=== PATIENT | female | born 1975 | race Caucasian/White ===

== ENCOUNTER 2018-11-07 07:45 | Inpatient (IN) | payer MEDICAID ==
[~2018-11-07] VITALS: Ht 152.4 cm; Wt 65.0 kg
[~2018-11-07 07:45] MED LIST: BUPR150T6 PO; NICO-687 TD; PHEN-786 PO; PSEU120T55 PO; ZOF4T PO
[2018-11-07] MEDS ORDERED: normal saline 1000ml 1,000 ML IVB ONE ×2 (08:15→08:25)
[2018-11-07] MEDS ORDERED: morphine 4 MG/ML inj SYRINge IV ONE ×2 (08:15→10:05)
[2018-11-07] MEDS ORDERED: ondansetron/PF 4mg/2ml inj IV ONE (08:15)
[2018-11-07 08:17] LABS: BASOPHILS % (AUTO) 0.2 % (0-1); EOSINOPHILS % (AUTO) 0.1 % (0-6); HEMATOCRIT 54.2 % (35.0-45.0); LYMPHOCYTES # (AUTO) 1.7 X10'3 (1.1-4.8); MEAN CORPUSCULAR HEMOGLOBIN 34.2 PG (27.0-31.0); MEAN CORPUSCULAR VOLUME 100.7 FL (78-98); MEAN PLATELET VOLUME 9.5 FL (7.4-10.4); MONOCYTES # (AUTO) 0.6 X10'3 (0-0.9); MONOCYTES % (AUTO) 5.1 % (2-12); NEUTROPHILS # (AUTO) 9.7 X10'3 (1.8-7.7); NEUTROPHILS % (AUTO) 80.6 % (42-75); PLATELET COUNT 220 X10'3 (140-440); RED BLOOD COUNT 5.39 X10'6 (4.20-5.60); RED CELL DISTRIBUTION WIDTH 14.1 % (11.5-14.5)
[2018-11-07 08:21] LABS: HEMOGLOBIN 18.4 g/dl (12.0-16.0)
--- NOTE | 2018-11-07 08:23 | NUR ---
received a call from the lab,critical hgb 18.4 hct 54.2-Dr. Varghese aware,no new order at this time.
[2018-11-07 08:25] LABS: INR 1.1 INR
[2018-11-07 08:30] LABS: ALANINE AMINOTRANSFERASE 42 U/L (12-78); ALBUMIN 3.5 G/DL (3.4-5.0); ALBUMIN/GLOBULIN RATIO 1.1 (1.1-1.5); ALKALINE PHOSPHATASE 79 IU/L (46-116); ANION GAP 16 (8-16); ASPARTATE AMINO TRANSFERASE 120 U/L (10-37); BILIRUBIN,TOTAL 1.1 MG/DL (0.1-1.0); BLOOD UREA NITROGEN 12 MG/DL (7-18); BUN/CREATININE RATIO 9.6 (6.6-38.0); CALCIUM 7.1 MG/DL (8.5-10.1); CHLORIDE 100 MMOL/L (99-107); CREATININE 1.25 MG/DL (0.40-0.90); GLUCOSE 150 MG/DL (70-104); POTASSIUM 3.7 MMOL/L (3.5-5.1); SODIUM 135 MMOL/L (135-145); TOTAL CARBON DIOXIDE 18.9 MMOL/L (24-32); TOTAL PROTEIN 6.8 G/DL (6.4-8.2); eGFR 47 ML/MIN
[2018-11-07 08:43] LABS: LIPASE 3771 U/L (73-393)
[2018-11-07 09:23] LABS: URINE HCG NEGATIVE (NEG)
[2018-11-07 09:24] LABS: CLARITY,URINE CLEAR (Clear); COLOR,URINE YELLOW (Yellow); GLUCOSE, URINE NEGATIVE (Neg); KETONES,URINE TRACE mg/dl (Neg); LEUKOCYTE ESTERASE ,URINE NEGATIVE (Neg); NITRITES, URINE NEGATIVE (Neg); OCCULT BLOOD,URINE NEGATIVE (Neg); PROTEIN,URINE 100 mg/dl (Neg)
[2018-11-07 09:33] LABS: UA COLLECTION TYPE CLN CATCH MIDSTREAM
[2018-11-07 09:34] LABS: BACTERIA,URINE NONE SEEN /HPF (Neg); HYALINE CASTS 0-3 /LPF (NEGATIVE); MUCUS STRANDS FEW /LPF (Neg); RBC,URINE 0-2 /HPF (0-2); SQUAMOUS EPITHELIAL CELL,UR FEW /LPF (FEW); WBC,URINE NONE SEEN /HPF (0-4)
[2018-11-07] MEDS ORDERED: HYDR-4353 PO (10:08)
[2018-11-07] MEDS ORDERED: LISI40TA4 PO (10:08)
[2018-11-07] MEDS ORDERED: normal saline 1000ML IV soln IVB ONE (10:10)
[2018-11-07] MEDS ORDERED: mag hydrox/Alum hydrox/simeth 30ml oral suspension PO PRN (10:30)
[2018-11-07] MEDS ORDERED: potassium Cl 20 mEq SR tablet PO PRN (10:30)
[2018-11-07] MEDS ORDERED: ondansetron/PF 4mg/2ml inj IV PRN (10:30)
[2018-11-07] MEDS ORDERED: morphine 2 MG/ML inj. syringe IV PRN ×2 (10:30)
[2018-11-07] MEDS ORDERED: magnesium hydroxide 30ml (MOM) UD suspension PO PRN (10:30)
[2018-11-07] MEDS ORDERED: potassium Cl 40MEQ/NS 500ml 500 ML IV PRN ×2 (10:30)
[2018-11-07] MEDS ORDERED: HYDROcodone/acetaminophen 10/325mg tab PO PRN (10:30)
[2018-11-07] MEDS ORDERED: magnesium 2GM in 50ml NS 50 ML IV PRN (10:30)
[2018-11-07] MEDS ORDERED: magnesium 4gm in 100ml NS 100 ML IV PRN (10:30)
[2018-11-07] MEDS ORDERED: magnesium Cl slow-release 64mg tablet PO PRN (10:30)
[2018-11-07] MEDS ORDERED: HYDROcodone/acetaminophen 5mg/325mg tablet PO PRN (10:30)
[2018-11-07] MEDS ORDERED: acetaminophen 325mg tablet PO PRN ×2 (10:30)
[2018-11-07] MEDS: normal saline 1000ml 1,000 ML IV SCH ×2 (10:47→20:59)
--- NOTE | 2018-11-07 13:30 | NUR ---
Patient to room 358B from ED. Received patient report from LEONARDO Javier. patient alert and oriented. BLL. Call light in reach of patient.
[2018-11-07 13:45] VITALS: BP 132/95
[2018-11-07] MEDS ORDERED: pantoprazole 40 MG vial IV ONE (15:10)
[2018-11-07] MEDS: morphine 2 MG/ML inj. syringe IV PRN ×2 (16:00→18:39)
[2018-11-07] MEDS ORDERED: hyDRALAzine 10mg tablet PO PRN (16:15)
[2018-11-07] MEDS ORDERED: hydrALAZINE 20mg/ml inj. IV PRN (16:15)
[2018-11-07] MEDS ORDERED: NO HOME MEDS (16:59)
[2018-11-07] MEDS: ketorolac tromethamine 15mg/ml inj. IV PRN ×2 (17:16→23:21)
--- NOTE | 2018-11-07 18:48 | NUR ---
Patient in room [facility]. I have received report from Sandy Elaine and had the opportunity to ask questions and assume patient care. Addendum: 11/07/18 at 1848 by Dacia Gomez RN Amended: Links added.
--- NOTE | 2018-11-07 18:49 | NUR ---
Problems reprioritized. Patient report given, questions answered & plan of care reviewed with LEONARDO Pederson. Patient just recieved pain managment. Call light and items of frequent use in reach of patient.
[2018-11-07 19:30] VITALS: BP 134/85
[2018-11-07 20:28] LABS: CHOL/HDL RATIO 2.8 (0.00-4.99); CHOLESTEROL 85 MG/DL (0-200); HDL CHOLESTEROL 30 MG/DL (35-60); LDL CHOLESTEROL 36 MG/DL (50-100); TRIGLYCERIDES 95 MG/DL (20-135)
[2018-11-07 20:33] LABS: TRIGLYCERIDES 96 MG/DL (20-135)
[2018-11-07 20:35] LABS: LIPASE 1955 U/L (73-393)
[2018-11-07] MEDS: pantoprazole 40 MG vial IV SCH (20:57)
[2018-11-07] MEDS: HYDROmorphone 1 mg/ml syringe IV PRN (20:58)
[2018-11-07] MEDS: heparin, porcine 5000 units/ml vial SQ SCH (20:59)
--- NOTE | 2018-11-07 23:20 | NUR ---
pt medicated for pain after using brp with iv Dilaudid. teaching done regarding pancreatitis and the standard of care and why we do what we do to help the enzymes go down.
[2018-11-08] VITALS: BP 131/80
--- NOTE | 2018-11-08 00:23 | NUR ---
resting on her side appears comfortable used brp earlier.
--- NOTE | 2018-11-08 01:05 | NUR ---
medicated for pain with iv Dilaudid. pt pain 03/31.
[2018-11-08] MEDS: HYDROmorphone 1 mg/ml syringe IV PRN ×5 (01:09→17:52)
[2018-11-08] MEDS: HYDROmorphone inj. 0.5 MG/0.5 ML DISP.SYRIN IV PRN (03:25)
--- NOTE | 2018-11-08 03:25 | NUR ---
pt medicated for pain at this time with 0.5mg of diladiud iv.
[2018-11-08 04:07] LABS: BASOPHILS % (AUTO) 0.3 % (0-1); EOSINOPHILS # (AUTO) 0.1 X10'3 (0-0.9); EOSINOPHILS % (AUTO) 1.3 % (0-6); HEMATOCRIT 41.7 % (35.0-45.0); HEMOGLOBIN 14.1 g/dl (12.0-16.0); LYMPHOCYTES # (AUTO) 1.2 X10'3 (1.1-4.8); LYMPHOCYTES % (AUTO) 15.9 % (21-51); MEAN CORPUSCULAR HEMOGLOBIN 34.2 PG (27.0-31.0); MEAN CORPUSCULAR HGB CONC 33.7 g/dL (33.0-36.5); MEAN CORPUSCULAR VOLUME 101.4 FL (78-98); MEAN PLATELET VOLUME 9.7 FL (7.4-10.4); MONOCYTES # (AUTO) 0.4 X10'3 (0-0.9); MONOCYTES % (AUTO) 5.6 % (2-12); NEUTROPHILS # (AUTO) 5.9 X10'3 (1.8-7.7); NEUTROPHILS % (AUTO) 76.9 % (42-75); PLATELET COUNT 129 X10'3 (140-440); RED BLOOD COUNT 4.11 X10'6 (4.20-5.60); RED CELL DISTRIBUTION WIDTH 14.2 % (11.5-14.5); WHITE BLOOD COUNT 7.7 X10'3 (4.5-11.0)
[2018-11-08 04:32] LABS: ALANINE AMINOTRANSFERASE 25 U/L (12-78); ALBUMIN 2.1 G/DL (3.4-5.0); ALBUMIN/GLOBULIN RATIO 0.8 (1.1-1.5); ALKALINE PHOSPHATASE 51 IU/L (46-116); ANION GAP 12 (8-16); ASPARTATE AMINO TRANSFERASE 64 U/L (10-37); BILIRUBIN,TOTAL 0.9 MG/DL (0.1-1.0); BLOOD UREA NITROGEN 5 MG/DL (7-18); BUN/CREATININE RATIO 7.5 (6.6-38.0); CHLORIDE 108 MMOL/L (99-107); CREATININE 0.67 MG/DL (0.40-0.90); GLUCOSE 78 MG/DL (70-104); LIPASE 1331 U/L (73-393); MAGNESIUM 1.4 MG/DL (1.5-2.4); SODIUM 140 MMOL/L (135-145); TOTAL PROTEIN 4.8 G/DL (6.4-8.2); eGFR > 90 ML/MIN
[2018-11-08 04:34] LABS: PHOSPHORUS 1.1 MG/DL (2.3-4.5)
[2018-11-08 04:36] LABS: CALCIUM 5.5 MG/DL (8.5-10.1)
[2018-11-08] MEDS ORDERED: potassium Cl 40MEQ/NS 500ml 500 ML IV PRN (04:55)
[2018-11-08] MEDS ORDERED: sodium phosphate inj. 15 MMOL in dextrose 5%-water 150 ML IV ONE (04:55)
--- NOTE | 2018-11-08 05:10 | NUR ---
medicated for sciatic pain with turning with toradol iv.
[2018-11-08] MEDS: ketorolac tromethamine 15mg/ml inj. IV PRN ×4 (05:14→23:21)
[2018-11-08] MEDS: normal saline 1000ml 1,000 ML IV SCH ×4 (06:06→20:24)
--- NOTE | 2018-11-08 06:09 | NUR ---
pt medicated with 1mg diladuid for pain. on the phone.
--- NOTE | 2018-11-08 06:25 | NUR ---
Patient in room [facility]. I have received report from LEONARDO Pederson and had the opportunity to ask questions and assume patient care.
--- NOTE | 2018-11-08 06:26 | NUR ---
pt up ambulating in the wang.
[2018-11-08 06:30] VITALS: BP 132/66
--- NOTE | 2018-11-08 07:13 | NUR ---
Problems reprioritized. Patient report given, questions answered & plan of care reviewed with Flavia Elaine. Addendum: 11/08/18 at 0713 by Dacia Gomez RN Amended: Links added.
[2018-11-08] MEDS: K and/or MAG REPLACEMENT MC SCH (07:32)
[2018-11-08] MEDS ORDERED: enoxaparin 40mg/0.4ml syringe SQ SCH (08:00)
[2018-11-08] MEDS: pantoprazole 40 MG vial IV SCH ×2 (08:37→19:11)
[2018-11-08] MEDS: heparin, porcine 5000 units/ml vial SQ SCH ×4 (08:38→23:23)
[2018-11-08] MEDS: potassium Cl 40MEQ/NS 500ml 500 ML IV PRN ×2 (08:38→19:11)
--- NOTE | 2018-11-08 13:30 | NUR ---
Malnutrition consult: Pt seen at bedside reports a UBW of 150-155# although it fluctuates and states she recently lost 10# in 1 month unintentionally. Pt states she believes the weight loss is r/t having an upset/gassy stomach. Pt endorses a good appetite and was eating on clear liquid diet during RD visit. Pt documented with no decrease in muscle strength or edema. Pt with no visible fat/muscle wasting. Pt currently lacks a minimum of two criteria for malnutrition. Pt admit with acute pancreatitis given verbal ed on pancreatitis nutrition therapy with RD contact information provided. Will remain available. Addendum: 11/08/18 at [address] Amended: Links added.
[2018-11-08] MEDS: HYDROcodone/acetaminophen 10/325mg tab PO PRN ×2 (15:00→20:22)
[2018-11-08 18:00] VITALS: BP 127/73
--- NOTE | 2018-11-08 18:10 | NUR ---
Problems reprioritized. Patient report given, questions answered & plan of care reviewed with LEONARDO Parmar.
[2018-11-08] MEDS ORDERED: calcium gluconate inj. 2 GM in normal saline 100ml IV soln 80 ML IV ONE (18:30)
--- NOTE | 2018-11-08 18:30 | NUR ---
Patient in room [facility]. I have received report from Flavia PATTERSON and had the opportunity to ask questions and assume patient care.
[2018-11-09] VITALS: BP 102/65
[2018-11-09] MEDS: HYDROcodone/acetaminophen 10/325mg tab PO PRN ×4 (00:46→15:50)
[2018-11-09] MEDS: HYDROmorphone inj. 0.5 MG/0.5 ML DISP.SYRIN IV PRN ×2 (02:56→05:11)
[2018-11-09 06:30] VITALS: BP 140/80
--- NOTE | 2018-11-09 06:35 | NUR ---
Patient in room [facility]. I have received report from LEONARDO Parmar and had the opportunity to ask questions and assume patient care.
--- NOTE | 2018-11-09 06:45 | NUR ---
Problems reprioritized. Patient report given, questions answered & plan of care reviewed with Flavia RN.
[2018-11-09] MEDS: pantoprazole 40 MG vial IV SCH (07:34)
[2018-11-09] MEDS: heparin, porcine 5000 units/ml vial SQ SCH ×2 (07:35→15:43)
[2018-11-09 08:21] LABS: BASOPHILS % (AUTO) 0.2 % (0-1); EOSINOPHILS # (AUTO) 0.2 X10'3 (0-0.9); EOSINOPHILS % (AUTO) 2.3 % (0-6); HEMATOCRIT 42.9 % (35.0-45.0); HEMOGLOBIN 14.4 g/dl (12.0-16.0); LYMPHOCYTES # (AUTO) 1.4 X10'3 (1.1-4.8); LYMPHOCYTES % (AUTO) 14.2 % (21-51); MEAN CORPUSCULAR HEMOGLOBIN 34.6 PG (27.0-31.0); MEAN CORPUSCULAR HGB CONC 33.6 g/dL (33.0-36.5); MEAN PLATELET VOLUME 9.9 FL (7.4-10.4); MONOCYTES # (AUTO) 0.7 X10'3 (0-0.9); NEUTROPHILS # (AUTO) 7.4 X10'3 (1.8-7.7); NEUTROPHILS % (AUTO) 76.3 % (42-75); PLATELET COUNT 140 X10'3 (140-440); RED BLOOD COUNT 4.16 X10'6 (4.20-5.60); RED CELL DISTRIBUTION WIDTH 14.2 % (11.5-14.5); WHITE BLOOD COUNT 9.7 X10'3 (4.5-11.0)
[2018-11-09 08:42] LABS: ALBUMIN 2.3 G/DL (3.4-5.0); ANION GAP 9 (8-16); BLOOD UREA NITROGEN 4 MG/DL (7-18); BUN/CREATININE RATIO 6.6 (6.6-38.0); CALCIUM 6.6 MG/DL (8.5-10.1); CHLORIDE 108 MMOL/L (99-107); CREATININE 0.61 MG/DL (0.40-0.90); GLUCOSE 81 MG/DL (70-104); MAGNESIUM 2.1 MG/DL (1.5-2.4); POTASSIUM 3.1 MMOL/L (3.5-5.1); SODIUM 141 MMOL/L (135-145); TOTAL CARBON DIOXIDE 23.7 MMOL/L (24-32); eGFR > 90 ML/MIN
[2018-11-09 08:45] LABS: PHOSPHORUS 1.2 MG/DL (2.3-4.5)
[2018-11-09] MEDS: K and/or MAG REPLACEMENT MC SCH (09:02)
[2018-11-09] MEDS ORDERED: sodium phosphate inj. 30 MMOL in dextrose 5%-water 250 ML IV ONE (09:10)
[2018-11-09] MEDS: potassium Cl 20 mEq SR tablet PO PRN ×3 (09:21→16:54)
[2018-11-09 11:50] LABS: LIPASE 660 U/L (73-393)
[2018-11-09 12:00] VITALS: BP 139/96
[2018-11-09] MEDS ORDERED: temazepam 15mg capsule PO PRN (13:05)
--- NOTE | 2018-11-09 18:55 | NUR ---
Problems reprioritized. Patient report given, questions answered & plan of care reviewed with LEONARDO Salazar.
--- NOTE | 2018-11-09 18:58 | NUR ---
Patient in room [facility]. I have received report from LEONARDO Alejandro and had the opportunity to ask questions and assume patient care.
--- NOTE | 2018-11-09 18:59 | NUR ---
Dr. Blake called after running into pt in [facility]. States pt wants to go home but lipase is still to high. States she is unable to medically clear pt but pt is requesting AMA form to go home. Ran into pt in [facility] myself to be introduced as oncoming RN. Pt req AMA form now. Prepared form.
--- NOTE | 2018-11-09 19:10 | NUR ---
Pt left AMA, states no help out required. Walked off floor with belongings to meet family at the front of hospital. AMA form signed, removed IV from right forearm.
[2018-11-09 19:21] VITALS: BP 137/85
[2018-11-10] MEDS ORDERED: pantoprazole 40mg Tablet.DR PO SCH (07:30)
== END 2018-11-09 19:30 | disposition left against medical advice (07) | DRG 282 ==
LOC: ER 07:45 → SUR 3N 13:33 → CMPBEDREQ 19:03
PROVIDERS: ADMIT Hospitalist; ATTEND Internal Medicine
DX: K85.90 Acute pancreatitis without necrosis or infection, unspecified (principal); E83.39 Other disorders of phosphorus metabolism; E78.1 Pure hyperglyceridemia; E83.51 Hypocalcemia; E86.0 Dehydration; E87.6 Hypokalemia; G89.29 Other chronic pain; F11.20 Opioid dependence, uncomplicated; R63.0 Anorexia; F17.210 Nicotine dependence, cigarettes, uncomplicated; Z53.21 Procedure and treatment not carried out due to patient leaving prior to being seen by health care provider; G47.00 Insomnia, unspecified; K52.9 Noninfective gastroenteritis and colitis, unspecified; Z87.11 Personal history of peptic ulcer disease; Z90.49 Acquired absence of other specified parts of digestive tract; Z68.28 Body mass index [BMI] 28.0-28.9, adult; Z88.5 Allergy status to narcotic agent; Z79.899 Other long term (current) drug therapy
CPT/HCPCS: 36415; 74176; 80048; 80053; 80061; 81001; 81025; 83690; 83735; 84100; 84478; 85025; 85610; 87070; 93005; 96374; 96375; 96376; 99285; C9113; G0378; J0610; J1170; J1644; J1885; J2270; J2405; J3480; J7030; J7060

== ENCOUNTER 2019-04-02 07:49 | Emergency (ER) | payer MEDICAID ==
[~2019-04-02] VITALS: Ht 160 cm; Wt 65.9 kg
[~2019-04-02 07:49] MED LIST changes: -BUPR150T6 PO; -NICO-687 TD; +NO HOME MEDS; -PHEN-786 PO; -PSEU120T55 PO; -ZOF4T PO
[2019-04-02] MEDS ORDERED: HYDROcodone/acetaminophen 5mg/325mg tablet PO ONE (08:00)
[2019-04-02] MEDS ORDERED: amox tr/potassium clavulanate 875/125mg TAB PO ONE (08:00)
--- NOTE | 2019-04-02 08:16 | NUR ---
Gauze and coban applied to the left elbow as ordered. Radiology report is pending.
[2019-04-02] MEDS ORDERED: AMOX-580 PO (08:39)
[2019-04-02 08:49] VITALS: BP 125/101
== END 2019-04-02 08:45 | disposition home or self-care (01) ==
LOC: ER 07:50
DX: S51.032A Puncture wound without foreign body of left elbow, initial encounter (principal); G89.29 Other chronic pain; F17.200 Nicotine dependence, unspecified, uncomplicated; Z90.49 Acquired absence of other specified parts of digestive tract; Z98.890 Other specified postprocedural states; Z56.0 Unemployment, unspecified; Z88.5 Allergy status to narcotic agent; Z79.899 Other long term (current) drug therapy; W54.0XXA Bitten by dog, initial encounter; Y93.89 Activity, other specified; Y92.89 Other specified places as the place of occurrence of the external cause; Y99.8 Other external cause status
CPT/HCPCS: 73080; 99284

== ENCOUNTER 2020-08-24 21:24 | Emergency (ER) | payer MEDICAID ==
[~2020-08-24] VITALS: Ht 154.9 cm; Wt 61.0 kg
[2020-08-24] MEDS ORDERED: TETanus/Pertussis (Acell)/Diphther VAC/PF (Tdap-Adult) 0.5ml syringe IMVAC ONE (22:10)
[2020-08-24 22:24] VITALS: BP 162/124
== END 2020-08-24 22:22 | disposition home or self-care (01) ==
LOC: ER 21:25
DX: S61.412A Laceration without foreign body of left hand, initial encounter (principal); F10.129 Alcohol abuse with intoxication, unspecified; G89.29 Other chronic pain; Z87.11 Personal history of peptic ulcer disease; Z90.89 Acquired absence of other organs; Z90.49 Acquired absence of other specified parts of digestive tract; Z98.890 Other specified postprocedural states; Z72.89 Other problems related to lifestyle; Z56.0 Unemployment, unspecified; W26.0XXA Contact with knife, initial encounter; Y93.89 Activity, other specified; Y92.89 Other specified places as the place of occurrence of the external cause; Y99.8 Other external cause status; Y90.9 Presence of alcohol in blood, level not specified
CPT/HCPCS: 12002; 12042; 99282; 99284

== ENCOUNTER 2021-07-20 09:12 | Inpatient (IN) | payer MEDICAID ==
[~2021-07-20] VITALS: Ht 157.5 cm; Wt 59.0 kg
[2021-07-20] MEDS ORDERED: normal saline 1000ML IV soln IVB ONE ×2 (09:25→12:45)
[2021-07-20] MEDS ORDERED: morphine 4 MG/ML inj SYRINge IV ONE ×2 (09:25→13:05)
[2021-07-20] MEDS ORDERED: proCHLORperazine 10 MG/2 ml inj IV ONE (09:25)
[2021-07-20 09:50] LABS: BASOPHILS % (AUTO) 0.8 % (0-1); EOSINOPHILS # (AUTO) 0.1 X10'3 (0-0.9); EOSINOPHILS % (AUTO) 1.9 % (0-6); HEMATOCRIT 43.2 % (35.0-45.0); LYMPHOCYTES # (AUTO) 0.7 X10'3 (1.1-4.8); LYMPHOCYTES % (AUTO) 12.4 % (21-51); MEAN CORPUSCULAR HEMOGLOBIN 36.6 PG (27.0-31.0); MEAN CORPUSCULAR HGB CONC 34.8 g/dL (33.0-36.5); MEAN CORPUSCULAR VOLUME 105.3 FL (78-98); MEAN PLATELET VOLUME 11.3 FL (7.4-10.4); MONOCYTES # (AUTO) 0.3 X10'3 (0-0.9); MONOCYTES % (AUTO) 6.3 % (2-12); NEUTROPHILS # (AUTO) 4.1 X10'3 (1.8-7.7); NEUTROPHILS % (AUTO) 78.6 % (42-75); PLATELET COUNT 124 X10'3 (140-440); RED BLOOD COUNT 4.11 X10'6 (4.20-5.60); RED CELL DISTRIBUTION WIDTH 14.2 % (11.5-14.5); WHITE BLOOD COUNT 5.3 X10'3 (4.5-11.0)
[2021-07-20 10:36] LABS: LARGE PLATELETS FEW; PLATELET ESTIMATE DECREASED
[2021-07-20 10:37] LABS: ALANINE AMINOTRANSFERASE 130 U/L (12-78); ALBUMIN 3.1 G/DL (3.4-5.0); ALKALINE PHOSPHATASE 119 IU/L (46-116); ANION GAP 17 (8-16); BILIRUBIN,TOTAL 7.3 MG/DL (0.1-1.0); BLOOD UREA NITROGEN 7 MG/DL (7-18); BUN/CREATININE RATIO 14.9 (6.6-38.0); CALCIUM 8.6 MG/DL (8.5-10.1); CHLORIDE 91 MMOL/L (99-107); CREATININE 0.47 MG/DL (0.40-0.90); GLUCOSE 121 MG/DL (70-104); MAGNESIUM 1.8 MG/DL (1.5-2.4); SODIUM 133 MMOL/L (135-145); TOTAL CARBON DIOXIDE 25.5 MMOL/L (24-32); eGFR > 90 ML/MIN
[2021-07-20 10:45] LABS: ALBUMIN/GLOBULIN RATIO 0.8 (1.1-1.5); ASPARTATE AMINO TRANSFERASE 579 U/L (10-37); POTASSIUM 3.8 MMOL/L (3.5-5.1); TOTAL PROTEIN 6.8 G/DL (6.4-8.2)
[2021-07-20 10:46] LABS: LIPASE 5289 U/L (73-393)
[2021-07-20] MEDS ORDERED: iohexol 300mg/ml 100ml inj. ONE (11:57)
[2021-07-20 12:06] LABS: CLARITY,URINE CLOUDY (Clear); COLOR,URINE YELLOW (Yellow); GLUCOSE, URINE NEGATIVE (Neg); KETONES,URINE >=80 mg/dl (Neg); LEUKOCYTE ESTERASE ,URINE NEGATIVE (Neg); NITRITES, URINE POSITIVE (Neg); OCCULT BLOOD,URINE LARGE (Neg); PROTEIN,URINE TRACE mg/dl (Neg)
[2021-07-20 12:07] LABS: UA COLLECTION TYPE CLN CATCH MIDSTREAM
[2021-07-20 12:18] LABS: BACTERIA,URINE 4+ /HPF (Neg); SQUAMOUS EPITHELIAL CELL,UR MANY /LPF (FEW)
[2021-07-20 12:19] LABS: WBC,URINE 0-4 /HPF (0-4)
[2021-07-20 12:38] LABS: URINE AMPHETAMINE SCREEN NEGATIVE (Neg); URINE BARBITUATE SCREEN NEGATIVE (Neg); URINE BENZODIAZEPINES SCREEN NEGATIVE (Neg); URINE CANNABINOID SCREEN POSITIVE (Neg); URINE COCAINE SCREEN NEGATIVE (Neg); URINE METHADONE SCREEN NEGATIVE (Neg); URINE OPIATE SCREEN POSITIVE (Neg); URINE PHENCYCLIDINE SCREEN NEGATIVE (Neg)
[2021-07-20] MEDS ORDERED: ondansetron/PF 4mg/2ml inj IV ONE (13:05)
[2021-07-20] MEDS ORDERED: haloperidol lactate 5mg/ml inj IM PRN (15:00)
[2021-07-20] MEDS ORDERED: magnesium 2GM in 50ml NS 50 ML IV PRN (15:00)
[2021-07-20] MEDS ORDERED: haloperidol 5mg tablet PO PRN (15:00)
[2021-07-20] MEDS ORDERED: ipratropium/albuterol 3ml nebule NEB PRN (15:00)
[2021-07-20] MEDS ORDERED: magnesium Cl slow-release 64mg tablet PO PRN (15:00)
[2021-07-20] MEDS ORDERED: magnesium 4gm in 100ml NS 100 ML IV PRN (15:00)
[2021-07-20] MEDS ORDERED: mag hydrox/Alum hydrox/simeth 30ml oral suspension PO PRN (15:00)
[2021-07-20] MEDS ORDERED: acetaminophen 325mg tablet PO PRN (15:00)
[2021-07-20] MEDS ORDERED: potassium CL 10mEq/100ml bag 100 ML IV PRN (15:00)
[2021-07-20] MEDS ORDERED: albuterol 2.5 MG/3 ML nebule NEB PRN (15:00)
[2021-07-20] MEDS ORDERED: magnesium hydroxide 30ml (MOM) UD suspension PO PRN (15:00)
[2021-07-20] MEDS: normal saline 1000ml 1,000 ML IV SCH ×3 (15:19→21:15)
[2021-07-20] MEDS: thiamine 100mg tablet PO SCH (15:19)
[2021-07-20] MEDS: folic acid 1mg tablet PO SCH (15:19)
[2021-07-20] MEDS ORDERED: CefTRIAXone/D5W-Rocephin 1gm 50 ML IV ONE (16:30)
[2021-07-20 17:11] LABS: URINE HCG NEGATIVE (NEG)
[2021-07-20] MEDS: docusate sod 100mg capsule PO SCH (19:18)
[2021-07-20] MEDS: heparin, porcine 5000 units/ml vial SQ SCH (19:18)
[2021-07-20] MEDS: K and/or MAG REPLACEMENT MC SCH (20:12)
--- NOTE | 2021-07-20 20:26 | NUR ---
report to Ramonita PATTERSON
[2021-07-20] MEDS: morphine 2 MG/ML inj. syringe IV PRN (21:14)
[2021-07-21] VITALS: BP 147/90
[2021-07-21] MEDS: normal saline 1000ml 1,000 ML IV SCH ×3 (01:58→20:49)
[2021-07-21] MEDS: morphine 2 MG/ML inj. syringe IV PRN ×3 (02:02→16:50)
[2021-07-21 05:58] LABS: BASOPHILS % (AUTO) 0.7 % (0-1); EOSINOPHILS # (AUTO) 0.1 X10'3 (0-0.9); EOSINOPHILS % (AUTO) 3.7 % (0-6); HEMOGLOBIN 12.3 g/dl (12.0-16.0); LYMPHOCYTES # (AUTO) 0.7 X10'3 (1.1-4.8); LYMPHOCYTES % (AUTO) 17.8 % (21-51); MEAN CORPUSCULAR HEMOGLOBIN 36.6 PG (27.0-31.0); MEAN CORPUSCULAR HGB CONC 35.1 g/dL (33.0-36.5); MEAN CORPUSCULAR VOLUME 104.2 FL (78-98); MEAN PLATELET VOLUME 10.5 FL (7.4-10.4); MONOCYTES # (AUTO) 0.4 X10'3 (0-0.9); NEUTROPHILS # (AUTO) 2.7 X10'3 (1.8-7.7); NEUTROPHILS % (AUTO) 67.8 % (42-75); PLATELET COUNT 84 X10'3 (140-440); RED BLOOD COUNT 3.36 X10'6 (4.20-5.60)
[2021-07-21 06:36] LABS: LARGE PLATELETS FEW; PLATELET ESTIMATE DECREASED
[2021-07-21 06:37] LABS: POLYCHROMASIA FEW; STOMATOCYTES 1+
[2021-07-21 06:40] LABS: ALANINE AMINOTRANSFERASE 104 U/L (12-78); ALBUMIN 2.9 G/DL (3.4-5.0); ALBUMIN/GLOBULIN RATIO 0.9 (1.1-1.5); ALKALINE PHOSPHATASE 101 IU/L (46-116); ANION GAP 13 (8-16); ASPARTATE AMINO TRANSFERASE 364 U/L (10-37); BILIRUBIN,TOTAL 5.1 MG/DL (0.1-1.0); BLOOD UREA NITROGEN 4 MG/DL (7-18); BUN/CREATININE RATIO 7.3 (6.6-38.0); CALCIUM 7.7 MG/DL (8.5-10.1); CHLORIDE 100 MMOL/L (99-107); CREATININE 0.55 MG/DL (0.40-0.90); GLUCOSE 96 MG/DL (70-104); MAGNESIUM 1.6 MG/DL (1.5-2.4); SODIUM 140 MMOL/L (135-145); TOTAL CARBON DIOXIDE 27.4 MMOL/L (24-32); eGFR > 90 ML/MIN
[2021-07-21 07:04] LABS: LIPASE 3094 U/L (73-393)
[2021-07-21 07:05] LABS: POTASSIUM 2.4 MMOL/L (3.5-5.1)
[2021-07-21 07:06] LABS: PHOSPHORUS 0.5 MG/DL (2.3-4.5)
--- NOTE | 2021-07-21 07:16 | NUR ---
PAGER ID: [phone] MESSAGE: Catarina Martinez 340B CRITICAL k 2.4, phos, 0.5 Since pt. is ETOF do you want to change fluids to have potassium in them? Happy New Year! Eloise [id number]
[2021-07-21] MEDS: multivitamins, therapeutics tablet PO SCH (07:48)
[2021-07-21] MEDS: folic acid 1mg tablet PO SCH (07:49)
[2021-07-21] MEDS: potassium Cl 20 mEq SR tablet PO PRN ×3 (07:49→23:05)
[2021-07-21] MEDS: thiamine 100mg tablet PO SCH (07:49)
[2021-07-21] MEDS: K and/or MAG REPLACEMENT MC SCH ×2 (07:50→20:00)
[2021-07-21] MEDS: docusate sod 100mg capsule PO SCH ×2 (07:50→21:59)
[2021-07-21] MEDS: nicotine 21mg patch - 24 hr TD SCH (07:50)
[2021-07-21] MEDS: heparin, porcine 5000 units/ml vial SQ SCH ×2 (08:00→20:00)
[2021-07-21] MEDS ORDERED: nicotine 14mg patch - 24hr TD SCH (08:00)
[2021-07-21] MEDS: ondansetron/PF 4mg/2ml inj IV PRN (08:20)
--- NOTE | 2021-07-21 08:24 | NUR ---
PAGER ID: [phone] MESSAGE: Catarina Martinez 340B Pt. c/o increase abd pain after eating, continues to eat and use IV pain meds. NPO? or oral pain meds? C/o dysuria as well with 4+ bacteria in UA. NO atb. Did you want to order one? Eloise [phone]
[2021-07-21] MEDS ORDERED: potassium phosphate inj 30 MMOL in normal saline 500ml IV soln 500 ML IV ONE (11:10)
[2021-07-21] MEDS: LORazepam 2 mg/ml vial IV PRN ×4 (11:17→21:41)
[2021-07-21 12:00] VITALS: BP 162/111
--- NOTE | 2021-07-21 12:00 | NUR ---
Pt. refused to have VS taken
--- NOTE | 2021-07-21 13:11 | NUR ---
PAGER ID: [phone] MESSAGE: Catarina Martinez 340b ROMANA pt. completely confused. Hallucinating and talking about hiding bodies and babies in trash can. Also c/o dysuria and 4+ UA. Did you want ATB? Eloise [phone]
--- NOTE | 2021-07-21 15:04 | NUR ---
PAGER ID: [phone] MESSAGE: Catarina Martinez 340B Pt. harm to herself and others. Kicking staff and will not follow commands to stay in bed. Unstable OOB alone, and will not use call light. Sitter on pt. already. Need orders please. Eloise [phone]
--- NOTE | 2021-07-21 15:45 | NUR ---
Praveen flynn notified of restraints.
--- NOTE | 2021-07-21 16:32 | NUR ---
Called hospitalist cell. He is aware pt. is tachy. No new orders at this time.
--- NOTE | 2021-07-21 17:45 | NUR ---
Pt. keeps c/o urgency yet can not void. Bladder scanned. 380ml in bladder
--- NOTE | 2021-07-21 18:45 | NUR ---
Gave report to Violetta PATTERSON.
[2021-07-21] MEDS ORDERED: CefTRIAXone 2gm/D5W 50ml BAG 50 ML IV SCH (21:00)
[2021-07-22] MEDS: morphine 2 MG/ML inj. syringe IV PRN ×3 (02:28→20:14)
[2021-07-22] MEDS: LORazepam 2 mg/ml vial IV PRN ×3 (02:28→18:20)
[2021-07-22 06:22] LABS: HEMATOCRIT 34.4 % (35.0-45.0); HEMOGLOBIN 11.9 g/dl (12.0-16.0); MEAN PLATELET VOLUME 10.3 FL (7.4-10.4); WHITE BLOOD COUNT 4.6 X10'3 (4.5-11.0)
[2021-07-22 06:25] LABS: BASOPHILS % (AUTO) 0.5 % (0-1); EOSINOPHILS # (AUTO) 0.1 X10'3 (0-0.9); LYMPHOCYTES # (AUTO) 0.9 X10'3 (1.1-4.8); LYMPHOCYTES % (AUTO) 19.8 % (21-51); MEAN CORPUSCULAR HEMOGLOBIN 36.4 PG (27.0-31.0); MEAN CORPUSCULAR HGB CONC 34.5 g/dL (33.0-36.5); MEAN CORPUSCULAR VOLUME 105.5 FL (78-98); MONOCYTES # (AUTO) 0.5 X10'3 (0-0.9); MONOCYTES % (AUTO) 11.7 % (2-12); PLATELET COUNT 109 X10'3 (140-440); RED BLOOD COUNT 3.26 X10'6 (4.20-5.60); RED CELL DISTRIBUTION WIDTH 14.2 % (11.5-14.5)
[2021-07-22 06:49] LABS: ALANINE AMINOTRANSFERASE 95 U/L (12-78); ALBUMIN 2.7 G/DL (3.4-5.0); ALBUMIN/GLOBULIN RATIO 0.9 (1.1-1.5); ALKALINE PHOSPHATASE 99 IU/L (46-116); ANION GAP 10 (8-16); ASPARTATE AMINO TRANSFERASE 247 U/L (10-37); BILIRUBIN,TOTAL 3.8 MG/DL (0.1-1.0); BLOOD UREA NITROGEN 1 MG/DL (7-18); BUN/CREATININE RATIO 2.6 (6.6-38.0); CALCIUM 7.5 MG/DL (8.5-10.1); CHLORIDE 108 MMOL/L (99-107); CREATININE 0.38 MG/DL (0.40-0.90); GLUCOSE 110 MG/DL (70-104); MAGNESIUM 1.5 MG/DL (1.5-2.4); POTASSIUM 3.2 MMOL/L (3.5-5.1); SODIUM 143 MMOL/L (135-145); TOTAL CARBON DIOXIDE 24.9 MMOL/L (24-32); TOTAL PROTEIN 5.6 G/DL (6.4-8.2); eGFR > 90 ML/MIN
[2021-07-22] MEDS: normal saline 1000ml 1,000 ML IV SCH ×2 (06:49→16:49)
[2021-07-22 06:50] LABS: LIPASE 1656 U/L (73-393)
[2021-07-22 06:58] LABS: PHOSPHORUS 1.1 MG/DL (2.3-4.5)
[2021-07-22 08:00] VITALS: BP 157/115
[2021-07-22] MEDS: docusate sod 100mg capsule PO SCH ×2 (08:00→20:12)
[2021-07-22] MEDS: K and/or MAG REPLACEMENT MC SCH ×2 (08:00→20:00)
[2021-07-22] MEDS: heparin, porcine 5000 units/ml vial SQ SCH ×2 (08:00→20:13)
[2021-07-22] MEDS ORDERED: CefTRIAXone 2gm/D5W 50ml BAG 50 ML IV SCH (08:00)
[2021-07-22] MEDS: folic acid 1mg tablet PO SCH (08:01)
[2021-07-22] MEDS: nicotine 21mg patch - 24 hr TD SCH (08:01)
[2021-07-22] MEDS: multivitamins, therapeutics tablet PO SCH (08:01)
[2021-07-22] MEDS: potassium Cl 20 mEq SR tablet PO PRN ×2 (08:02→20:12)
[2021-07-22] MEDS: thiamine 100mg tablet PO SCH (08:02)
[2021-07-22 11:00] VITALS: BP 164/116
[2021-07-22] MEDS: ondansetron/PF 4mg/2ml inj IV PRN (13:45)
[2021-07-22] MEDS: Neutra Phos packet PO SCH ×2 (13:50→20:13)
[2021-07-22] MEDS ORDERED: LORazepam 1 MG tablet PO PRN (13:51)
[2021-07-22 18:00] VITALS: BP 133/88
[2021-07-23] VITALS: BP 140/105
[2021-07-23] MEDS: normal saline 1000ml 1,000 ML IV SCH ×2 (02:49→14:15)
[2021-07-23 06:03] LABS: BASOPHILS % (AUTO) 0.7 % (0-1); EOSINOPHILS # (AUTO) 0.1 X10'3 (0-0.9); EOSINOPHILS % (AUTO) 2.3 % (0-6); HEMATOCRIT 33.7 % (35.0-45.0); HEMOGLOBIN 11.7 g/dl (12.0-16.0); LYMPHOCYTES # (AUTO) 0.9 X10'3 (1.1-4.8); LYMPHOCYTES % (AUTO) 19.7 % (21-51); MEAN CORPUSCULAR HEMOGLOBIN 36.4 PG (27.0-31.0); MEAN CORPUSCULAR HGB CONC 34.6 g/dL (33.0-36.5); MEAN CORPUSCULAR VOLUME 105.1 FL (78-98); MONOCYTES # (AUTO) 0.7 X10'3 (0-0.9); MONOCYTES % (AUTO) 15.3 % (2-12); NEUTROPHILS # (AUTO) 2.9 X10'3 (1.8-7.7); PLATELET COUNT 143 X10'3 (140-440); RED CELL DISTRIBUTION WIDTH 14.2 % (11.5-14.5); WHITE BLOOD COUNT 4.7 X10'3 (4.5-11.0)
[2021-07-23 06:29] LABS: ALANINE AMINOTRANSFERASE 81 U/L (12-78); ALBUMIN 2.4 G/DL (3.4-5.0); ALBUMIN/GLOBULIN RATIO 0.9 (1.1-1.5); ALKALINE PHOSPHATASE 97 IU/L (46-116); ANION GAP 12 (8-16); ASPARTATE AMINO TRANSFERASE 231 U/L (10-37); BILIRUBIN,TOTAL 3.1 MG/DL (0.1-1.0); BLOOD UREA NITROGEN 1 MG/DL (7-18); BUN/CREATININE RATIO 2.8 (6.6-38.0); CALCIUM 7.1 MG/DL (8.5-10.1); CHLORIDE 105 MMOL/L (99-107); CREATININE 0.36 MG/DL (0.40-0.90); GLUCOSE 120 MG/DL (70-104); MAGNESIUM 1.3 MG/DL (1.5-2.4); PHOSPHORUS 1.3 MG/DL (2.3-4.5); SODIUM 143 MMOL/L (135-145); TOTAL CARBON DIOXIDE 26.1 MMOL/L (24-32); TOTAL PROTEIN 5.2 G/DL (6.4-8.2); eGFR > 90 ML/MIN
[2021-07-23 06:31] LABS: LIPASE 1595 U/L (73-393)
[2021-07-23] MEDS: potassium Cl 20 mEq SR tablet PO PRN (06:47)
[2021-07-23] MEDS: K and/or MAG REPLACEMENT MC SCH ×2 (06:47→18:39)
[2021-07-23 07:32] LABS: PLATELET ESTIMATE DECREASED; POLYCHROMASIA 1+; TARGET CELLS 2+; TOTAL CELLS COUNTED 100
[2021-07-23] MEDS: nicotine 21mg patch - 24 hr TD SCH (07:58)
[2021-07-23] MEDS: thiamine 100mg tablet PO SCH (07:58)
[2021-07-23] MEDS: Neutra Phos packet PO SCH ×2 (07:59→12:56)
[2021-07-23] MEDS: folic acid 1mg tablet PO SCH (07:59)
[2021-07-23] MEDS: ondansetron/PF 4mg/2ml inj IV PRN ×2 (07:59→20:01)
[2021-07-23] MEDS: docusate sod 100mg capsule PO SCH ×2 (07:59→20:00)
[2021-07-23] MEDS: multivitamins, therapeutics tablet PO SCH (07:59)
[2021-07-23 08:00] VITALS: BP 152/87
[2021-07-23] MEDS: LORazepam 2 mg/ml vial IV PRN ×2 (08:00→12:50)
[2021-07-23] MEDS: heparin, porcine 5000 units/ml vial SQ SCH ×2 (08:01→20:00)
[2021-07-23 12:00] VITALS: BP 144/68
--- NOTE | 2021-07-23 15:37 | NUR ---
paged hospitalist to renew patients medications per protocol for Mag and Potassium
[2021-07-23] MEDS ORDERED: potassium Cl 40MEQ/1/2NS 520ml 520 ML IV PRN (16:50)
[2021-07-23] MEDS: magnesium Cl slow-release 64mg tablet PO SCH ×2 (17:23→20:01)
[2021-07-23] MEDS: potassium Cl 20 mEq SR tablet PO SCH ×2 (17:23→20:01)
[2021-07-23 19:00] VITALS: BP 148/107
[2021-07-23] MEDS: morphine 2 MG/ML inj. syringe IV PRN (19:59)
[2021-07-23] MEDS ORDERED: magnesium Cl slow-release 64mg tablet PO SCH (20:00)
[2021-07-24] VITALS: BP 128/88
[2021-07-24] MEDS: Neutra Phos packet PO SCH ×4 (00:41→20:00)
[2021-07-24] MEDS: normal saline 1000ml 1,000 ML IV SCH ×3 (00:42→14:06)
[2021-07-24] MEDS ORDERED: magnesium 4gm in 100ml NS 100 ML IV PRN (03:00)
[2021-07-24] MEDS ORDERED: potassium Cl 20 mEq SR tablet PO PRN ×2 (03:00)
[2021-07-24] MEDS ORDERED: magnesium Cl slow-release 64mg tablet PO PRN (03:00)
[2021-07-24] MEDS: ondansetron/PF 4mg/2ml inj IV PRN ×3 (04:08→19:45)
[2021-07-24] MEDS: morphine 2 MG/ML inj. syringe IV PRN ×3 (04:09→19:49)
[2021-07-24 06:16] LABS: EOSINOPHILS # (AUTO) 0.1 X10'3 (0-0.9); EOSINOPHILS % (AUTO) 2.8 % (0-6); HEMATOCRIT 36.9 % (35.0-45.0); HEMOGLOBIN 12.8 g/dl (12.0-16.0); LYMPHOCYTES % (AUTO) 22.7 % (21-51); MEAN CORPUSCULAR HEMOGLOBIN 36.7 PG (27.0-31.0); MEAN CORPUSCULAR HGB CONC 34.6 g/dL (33.0-36.5); MEAN CORPUSCULAR VOLUME 106.3 FL (78-98); MEAN PLATELET VOLUME 10.4 FL (7.4-10.4); MONOCYTES # (AUTO) 0.7 X10'3 (0-0.9); MONOCYTES % (AUTO) 15.9 % (2-12); NEUTROPHILS # (AUTO) 2.4 X10'3 (1.8-7.7); NEUTROPHILS % (AUTO) 57.6 % (42-75); PLATELET COUNT 182 X10'3 (140-440); RED BLOOD COUNT 3.47 X10'6 (4.20-5.60); RED CELL DISTRIBUTION WIDTH 14.8 % (11.5-14.5); WHITE BLOOD COUNT 4.2 X10'3 (4.5-11.0)
[2021-07-24 06:32] LABS: ALANINE AMINOTRANSFERASE 79 U/L (12-78); ALBUMIN 2.5 G/DL (3.4-5.0); ALBUMIN/GLOBULIN RATIO 0.8 (1.1-1.5); ALKALINE PHOSPHATASE 101 IU/L (46-116); ANION GAP 9 (8-16); ASPARTATE AMINO TRANSFERASE 177 U/L (10-37); BILIRUBIN,TOTAL 2.7 MG/DL (0.1-1.0); BLOOD UREA NITROGEN 2 MG/DL (7-18); BUN/CREATININE RATIO 4.7 (6.6-38.0); CALCIUM 7.7 MG/DL (8.5-10.1); CHLORIDE 107 MMOL/L (99-107); CREATININE 0.43 MG/DL (0.40-0.90); GLUCOSE 121 MG/DL (70-104); LIPASE 713 U/L (73-393); MAGNESIUM 1.4 MG/DL (1.5-2.4); POTASSIUM 3.9 MMOL/L (3.5-5.1); SODIUM 143 MMOL/L (135-145); TOTAL CARBON DIOXIDE 26.8 MMOL/L (24-32); TOTAL PROTEIN 5.7 G/DL (6.4-8.2); eGFR > 90 ML/MIN
[2021-07-24 08:00] VITALS: BP 153/102
[2021-07-24] MEDS: heparin, porcine 5000 units/ml vial SQ SCH ×2 (08:00→19:57)
[2021-07-24] MEDS: docusate sod 100mg capsule PO SCH (08:00)
[2021-07-24] MEDS: multivitamins, therapeutics tablet PO SCH (08:22)
[2021-07-24] MEDS: nicotine 21mg patch - 24 hr TD SCH (08:22)
[2021-07-24] MEDS: thiamine 100mg tablet PO SCH (08:22)
[2021-07-24] MEDS: folic acid 1mg tablet PO SCH (08:22)
[2021-07-24] MEDS: K and/or MAG REPLACEMENT MC SCH ×2 (08:24→20:00)
[2021-07-24 10:18] LABS: TOTAL CELLS COUNTED 100
[2021-07-24 10:19] LABS: PLATELET ESTIMATE NORMAL
[2021-07-24 10:20] LABS: LARGE PLATELETS FEW; POLYCHROMASIA 1+; TARGET CELLS 2+
[2021-07-24 10:21] LABS: SMUDGE CELLS 1+; STOMATOCYTES 1+
--- NOTE | 2021-07-24 11:26 | NUR ---
Met with patient in regards to alcohol use and to see if patient wanted any resources for treatment options. Patient would like outpatient resources. I gave patient [facility] number and a community referral guide. I also gave patient my number that she can call and I will assist her.
[2021-07-24 12:00] VITALS: BP 142/96
--- NOTE | 2021-07-24 12:34 | NUR ---
Page sent to Dr. Blake- pt requesting loperamide for diarrhea? Can we also get something other than morphine for pain? Waymart or Oxy? Thanks Danuta
[2021-07-24] MEDS ORDERED: loperamide 2mg capsule PO ONE (12:55)
[2021-07-24] MEDS ORDERED: HYDROcodone/acetaminophen 5mg/325mg tablet PO ONE (13:00)
--- NOTE | 2021-07-24 13:54 | NUR ---
Initial: Pt admitted w/ pancreatitis, and alcoholism, started binge drinking with friends on and subsequently developed abdominal pain nausea vomiting and diarrhea per EMR. Apparently she has not been able to even drink much water d/t increased abd pain. Pt may appear to be at risk for refeeding syndrome as evidenced by low K, Phos, and Mg though pt has consumed avg 57% x 7 meals up to 100% last 2 meals. Pt also continues w/ diarrhea and is requesting imodium per MD note. Recommend advancing as tolerated to Regular diet. Limited nutrition interventions available at this time, will continue to monitor. Recs: 1. Advance diet as tolerated to Regular 2. Monitor need for additional ONS 3. Bowel care per rx, anti-diarrheal per MD 4. Weekly wts Addendum: 07/24/21 at [address] Amended: Links added.
[2021-07-24] MEDS ORDERED: LORazepam 2 mg/ml vial IV PRN (15:00)
[2021-07-24] MEDS ORDERED: LORazepam 1 MG tablet PO PRN (15:00)
--- NOTE | 2021-07-24 18:10 | NUR ---
Patient in room [facility]. I have received report from Danuta PATTERSON and had the opportunity to ask questions and assume patient care.
--- NOTE | 2021-07-24 18:14 | NUR ---
PAin improving, tolerating clears well. [place] for pain. Report given to Tona PATTERSON
[2021-07-24 19:00] VITALS: BP 127/83
[2021-07-25] VITALS: BP 145/107
[2021-07-25] MEDS: normal saline 1000ml 1,000 ML IV SCH ×2 (00:01→14:49)
[2021-07-25] MEDS: morphine 2 MG/ML inj. syringe IV PRN ×2 (02:18→07:53)
[2021-07-25 06:14] LABS: EOSINOPHILS # (AUTO) 0.2 X10'3 (0-0.9); HEMOGLOBIN 13.2 g/dl (12.0-16.0); MONOCYTES # (AUTO) 0.9 X10'3 (0-0.9); MONOCYTES % (AUTO) 19.5 % (2-12); NEUTROPHILS # (AUTO) 2.6 X10'3 (1.8-7.7); WHITE BLOOD COUNT 4.8 X10'3 (4.5-11.0)
[2021-07-25 06:16] LABS: EOSINOPHILS % (AUTO) 3.4 % (0-6); HEMATOCRIT 38.5 % (35.0-45.0); LYMPHOCYTES # (AUTO) 1.1 X10'3 (1.1-4.8); LYMPHOCYTES % (AUTO) 22.4 % (21-51); MEAN CORPUSCULAR HEMOGLOBIN 36.6 PG (27.0-31.0); MEAN CORPUSCULAR HGB CONC 34.3 g/dL (33.0-36.5); MEAN CORPUSCULAR VOLUME 106.7 FL (78-98); MEAN PLATELET VOLUME 10.6 FL (7.4-10.4); NEUTROPHILS % (AUTO) 53.7 % (42-75); PLATELET COUNT 229 X10'3 (140-440); RED BLOOD COUNT 3.61 X10'6 (4.20-5.60); RED CELL DISTRIBUTION WIDTH 15.5 % (11.5-14.5)
[2021-07-25 06:29] LABS: ALANINE AMINOTRANSFERASE 83 U/L (12-78); ALBUMIN 2.8 G/DL (3.4-5.0); ALBUMIN/GLOBULIN RATIO 0.8 (1.1-1.5); ALKALINE PHOSPHATASE 108 IU/L (46-116); ANION GAP 9 (8-16); ASPARTATE AMINO TRANSFERASE 173 U/L (10-37); BILIRUBIN,TOTAL 2.8 MG/DL (0.1-1.0); BLOOD UREA NITROGEN 1 MG/DL (7-18); BUN/CREATININE RATIO 1.9 (6.6-38.0); CALCIUM 7.5 MG/DL (8.5-10.1); CHLORIDE 107 MMOL/L (99-107); CREATININE 0.52 MG/DL (0.40-0.90); GLUCOSE 108 MG/DL (70-104); LIPASE 395 U/L (73-393); MAGNESIUM 1.3 MG/DL (1.5-2.4); PHOSPHORUS 2.8 MG/DL (2.3-4.5); POTASSIUM 3.4 MMOL/L (3.5-5.1); SODIUM 144 MMOL/L (135-145); TOTAL CARBON DIOXIDE 27.8 MMOL/L (24-32); TOTAL PROTEIN 6.2 G/DL (6.4-8.2); eGFR > 90 ML/MIN
[2021-07-25] MEDS: ondansetron/PF 4mg/2ml inj IV PRN (07:41)
[2021-07-25] MEDS: nicotine 21mg patch - 24 hr TD SCH (07:41)
[2021-07-25] MEDS: heparin, porcine 5000 units/ml vial SQ SCH (07:42)
[2021-07-25] MEDS: folic acid 1mg tablet PO SCH (07:42)
[2021-07-25] MEDS: multivitamins, therapeutics tablet PO SCH (07:42)
[2021-07-25] MEDS: thiamine 100mg tablet PO SCH (07:42)
[2021-07-25] MEDS: Neutra Phos packet PO SCH (07:43)
[2021-07-25] MEDS: K and/or MAG REPLACEMENT MC SCH (07:44)
[2021-07-25 08:00] VITALS: BP 118/83
[2021-07-25 09:01] LABS: PLATELET ESTIMATE NORMAL; TOTAL CELLS COUNTED 100
[2021-07-25 09:02] LABS: LARGE PLATELETS MODERATE
[2021-07-25 11:00] VITALS: BP 143/107
[2021-07-25] MEDS ORDERED: MULT-25 PO (11:36)
[2021-07-25] MEDS ORDERED: folic acid tablet PO (11:36)
[2021-07-25] MEDS ORDERED: thiamine tablet PO (11:36)
--- NOTE | 2021-07-25 17:52 | NUR ---
Diet advanced to regular this morning, pt did vomit once after eating but provider said ok to d/c. Pt d/c'd home
== END 2021-07-25 17:45 | disposition home or self-care (01) | DRG 282 ==
LOC: ER 09:13 → ED HOLD 15:06 → SUR 3N 20:27
PROVIDERS: ADMIT Family Medicine; ATTEND Family Medicine
PROC: BW211ZZ Computerized Tomography (CT Scan) of Abdomen and Pelvis using Low Osmolar Contrast (ICD-10-PCS; principal; 2021-07-20)
DX: K85.10 Biliary acute pancreatitis without necrosis or infection (principal); G93.40 Encephalopathy, unspecified; D69.6 Thrombocytopenia, unspecified; N30.01 Acute cystitis with hematuria; R16.0 Hepatomegaly, not elsewhere classified; K70.10 Alcoholic hepatitis without ascites; E83.39 Other disorders of phosphorus metabolism; K76.0 Fatty (change of) liver, not elsewhere classified; K86.1 Other chronic pancreatitis; F12.90 Cannabis use, unspecified, uncomplicated; F17.210 Nicotine dependence, cigarettes, uncomplicated; G89.29 Other chronic pain; F10.239 Alcohol dependence with withdrawal, unspecified; E83.42 Hypomagnesemia; E87.1 Hypo-osmolality and hyponatremia; E87.6 Hypokalemia; M54.9 Dorsalgia, unspecified; R19.7 Diarrhea, unspecified; Z82.5 Family history of asthma and other chronic lower respiratory diseases; Z83.3 Family history of diabetes mellitus; Z87.11 Personal history of peptic ulcer disease; Z90.49 Acquired absence of other specified parts of digestive tract; Z56.0 Unemployment, unspecified; Z71.6 Tobacco abuse counseling
CPT/HCPCS: 36415; 74177; 74181; 76700; 80053; 80305; 81001; 81025; 82948; 83690; 83735; 84100; 85007; 85008; 85025; 85610; 87081; 94760; 96361; 96374; 96375; 96376; 97110; 97116; 97161; 97530; 97535; 99285; G0378; J0696; J0780; J1644; J2060; J2270; J2405; J3475; J3490; J7030; J7040; Q9967